=== PATIENT | male | born 1960 | race Caucasian/White ===

== ENCOUNTER 2022-03-15 12:25 | Observation (INO) ==
--- NOTE | 2022-03-15 13:26 | DR.GENAD ---
HPI Time Seen Time Seen by Provider: 03/15/22 13:24 PCP Primary Care Physician: LILIAN SANCHEZ Complaint/Symptoms Chief Complaint Doctors Comments: PATIENT WAS TOLD BY HIS PSP TO GO TO ER FOR LOW MAGNESIUM AND SAMIA CREATENINE LEVEL . WAS TOLD THAT HE NEEDED MG REPLACED AND FLUIDS. Chief Complaint:: PT REPORTS THAT HE WAS SENT OVER HER FROM HIS MD OFFICE DUE TO HIS MAGNESIUM BEING LOW AND HIS CREATINE BEING HIGH , AND HE WAS TOLD TO THAT HE NEEDED FLUIDS ,BR COVID-19 Coronavirus risk:travel/contact w/high risk person: No Has patient experienced Coronavirus symptoms: No Source History Provided: Patient Mode of Arrival Mode of Arrival: Ambulatory Timing Onset of Chief Complaint: 03/15/22 PMH PMH Past Medical History: Yes Past Medical History Comment: HX OF RENAL CELL CANINOMA Past Surgical History: Yes Past Surgical History Comment: RENAL ABLASION,,BR Family History History of Family Medical Conditions: Yes Family Medical History: Cancer Social History Does patient currently use any type of tobacco product: No Have you used tobacco products in the last 12 months: No Type of Tobacco Use: None Does any household member use tobacco: No Alcohol Use: Rarely Do you use any recreational Drugs:: No Lives With: Family Lives Where: Home Travel Risk Coronavirus risk:travel/contact w/high risk person: No Has patient experienced Coronavirus symptoms: No Infectious screening In the last 2 months have you had wt loss of >10#?: NO Have you had fever, night sweats or hemotysis?: No Have you traveled outside the country in the last 6 months?: No Isolation: Standard ROS Review of Systems Constitutional: No Symptoms Reported Eyes: No Symptoms Reported ENTM: No Symptoms Reported Respiratoy: No Symptoms Reported Cardiovascular: No Symptoms Reported Gastrointestinal/Abdominal: No Symptoms Reported Genitourinary: No Symptoms Reported Neurological: No Symptoms Reported Musculoskeletal: No Symptoms Reported Integumentary: No Symptoms Reported Hematologic/Lymphatic: No Symptoms Reported Endocrine: No Symptoms Reported Psychiatric: No Symptoms Reported PE Vital Signs Vitals: Temperature 97.6 F Pulse Rate 95 Respiratory Rate 22 Blood Pressure [Left Arm] 137/81 Blood Pressure 140/70 O2 Sat by Pulse Oximetry 98 General Limitations: No Limitations General Appearance: Alert and In No Apparent Distress Head Head Exam: Normal Inspection, Atraumatic and Normocephalic Eyes Eye exam: Normal Appearance, PERRL and EOMI ENT ENT Exam: Normal Exam, Normal Oropharynx and Normal External Ear Exam External Ear Exam: Normal External Inspection Nose Exam: Normal Nose Exam Mouth Exam: Normal Inspection Throat Exam: Normal Inspection Neck Neck Exam: Normal Inspection, Full ROM and Trachea Midline Chest Chest Inspection: Normal Inspection and Symmetric Chest Wall Rise Respiratory Respiratory Exam: Normal Lung Sounds Bilat Cardiovascular Cardiovascular Exam: Regular Rate and Normal Rhythm Abdominal Exam Abdominal Exam: Normal Inspection, Normal Bowel Sounds and Soft Extremities Extremities Exam: Normal Inspection and Full ROM Back Back Exam: Normal Inspection and Full ROM Neurologic Neurological Exam: Alert, Oriented X3 and CN II-XII Intact Psychiatric Psychiatric Exam: Normal Affect and Normal Mood Skin Skin Exam: Warm, Dry and Intact MDM Differential Diagnosis Differential Diagnosis: HYPOMAGNESEMIA,RENAL INSUFFICIENCY,DEHYDRATION COURSE Treatment Treatment: PATIENT REMAINED STABLE DURING ER EVALUATION. HIS MAGNESIUM LEVEL HERE WAS 0.5. CONSULTED WITH PHARMACIST AND HE RECOMMENDED 4 K RIDERE OF 1G EACH OF MAG SULFATE EACH GIVEN OVER 4 HOURS AND THEN MAG OXIDE 400MG BID. WILL ABMIT PATIENT TO GET THE MG OXIDE AND FLUIDS DUE TO ELEVATED CREATININE MAYBE 2ND TO DEHYDRATION. THE PATIENT ALSO GOT 1 LITER NACL IN ER BOLUS. SPOKE TO DR WALDROP AT 355 PM. WILL ACCEPT PATIENT FOR ADMISSION. UTILIZTION REVIEW STATED PATIENT CAN BE PUT IN OBSERVATION.THE PATIENT WAS TOLD OF THE PLAN AND WAS AGREABLE TO THE OBSERVATION. ROR Labs Reviewed Laboratory Results Reviewed?: Yes Result Diagrams: 03/15/22 13:52 03/15/22 13:52 Laboratory: WBC 5.4 X10^3/uL (3.6-10.0) 03/15/22 13:52 RBC 3.68 X10^6/uL (4.7-6.0) L 03/15/22 13:52 Hgb 11.5 g/dL (13.5-18.0) L 03/15/22 13:52 Hct 33.3 % (42.0-54.0) L 03/15/22 13:52 MCV 90.5 fL (80.0-100.0) 03/15/22 13:52 MCH 31.3 pg (27.0-34.0) 03/15/22 13:52 MCHC 34.5 g/dL (33.0-35.0) 03/15/22 13:52 RDW 13.9 % (11.6-16.5) 03/15/22 13:52 Plt Count 137 X10^3/uL (150.0-450.0) L 03/15/22 13:52 MPV 8.8 fL (7.4-11.0) 03/15/22 13:52 Neut % (Auto) 72.4 % (42.0-75.0) 03/15/22 13:52 Lymph % (Auto) 15.3 % (21.0-51.0) L 03/15/22 13:52 [place] % (Auto) 10.4 % (0.0-13.0) 03/15/22 13:52 Eos % (Auto) 1.1 % (0.9-2.9) 03/15/22 13:52 Baso % (Auto) 0.8 % (0.2-1.0) 03/15/22 13:52 Neut # (Auto) 3.9 x10^3/uL (2.2-4.8) 03/15/22 13:52 Lymph # (Auto) 0.8 X10^3/uL (1.3-2.9) L 03/15/22 13:52 [place] # (Auto) 0.6 x10^3/uL (0.3-0.8) 03/15/22 13:52 Eos # (Auto) 0.1 x10^3/uL (0.0-0.2) 03/15/22 13:52 Baso # (Auto) 0.0 X10^3/uL (0.0-0.1) 03/15/22 13:52 Absolute Nucleated RBC 0.0 /100WBC 03/15/22 13:52 Sodium 139 mmol/L (136-145) 03/15/22 13:52 Corrected Sodium TNP 03/15/22 13:52 Potassium 4.1 mmol/L (3.5-5.1) 03/15/22 13:52 Chloride 103 mmol/L (98-107) 03/15/22 13:52 Carbon Dioxide 28.5 mmol/L (21-32) 03/15/22 13:52 BUN 33 mg/dL (7-18) H 03/15/22 13:52 Creatinine 2.04 mg/dL (0.70-1.30) H 03/15/22 13:52 Est GFR (MDRD) Af Amer 43 (>60) L 03/15/22 13:52 Est GFR (MDRD) Non-Af 35 (>60) L 03/15/22 13:52 Glucose 98 mg/dL (65-99) 03/15/22 13:52 Calcium 7.4 mg/dL (8.5-10.1) L 03/15/22 13:52 Corrected Calcium TNP 03/15/22 13:52 Magnesium 0.5 mg/dL (1.7-2.9) L 03/15/22 13:52 Total Bilirubin 0.60 mg/dL (0.2-1.0) 03/15/22 13:52 AST 15 Units/L (15-37) 03/15/22 13:52 ALT 13 Units/L (12-78) 03/15/22 13:52 Alkaline Phosphatase 58 Units/L (46-116) 03/15/22 13:52 Total Protein 7.6 g/dL (6.4-8.2) 03/15/22 13:52 Albumin 3.7 g/dL (3.4-5.0) 03/15/22 13:52 Globulin 3.9 g/dL (2.5-4.5) 03/15/22 13:52 Albumin/Globulin Ratio 0.9 Ratio (1.1-2.1) L 03/15/22 13:52 Opioid Opioid Risk Tool Age (Marcio box if 16-45): No History of Preadolescent Sexual Abuse: No Total: 0 Total Score Risk Category: Low Risk Copyright: Adam RAINEY predicting aberrant behaviors Discharge Plan Diagnosis Discharge Problem: Hypomagnesemia, Dehydration, Acute renal insufficiency Discharge Plan Patient Disposition: ADMITTED INPATIENT Condition: Stable Orders to Discharge Patient Discharge Orders: Transfer (Routine); Ordered 03/15/22 Ordered By: Chapito Smith
[2022-03-15 14:03] LABS: BASOPHILS % (AUTO) 0.8 % (0.2-1.0); EOSINOPHILS # (AUTO) 0.1 x10^3/uL (0.0-0.2); EOSINOPHILS % (AUTO) 1.1 % (0.9-2.9); HEMATOCRIT 33.3 % (42.0-54.0); HEMOGLOBIN 11.5 g/dL (13.5-18.0); LYMPHOCYTES # (AUTO) 0.8 X10^3/uL (1.3-2.9); LYMPHOCYTES % (AUTO) 15.3 % (21.0-51.0); MEAN CORPUSCULAR HEMOGLOBIN 31.3 pg (27.0-34.0); MEAN CORPUSCULAR HGB CONC 34.5 g/dL (33.0-35.0); MEAN CORPUSCULAR VOLUME 90.5 fL (80.0-100.0); MEAN PLATELET VOLUME 8.8 fL (7.4-11.0); MONOCYTES # (AUTO) 0.6 x10^3/uL (0.3-0.8); MONOCYTES % (AUTO) 10.4 % (0.0-13.0); NEUTROPHILS # (AUTO) 3.9 x10^3/uL (2.2-4.8); NEUTROPHILS % (AUTO) 72.4 % (42.0-75.0); RED BLOOD COUNT 3.68 X10^6/uL (4.7-6.0); RED CELL DISTRIBUTION WIDTH 13.9 % (11.6-16.5); WHITE BLOOD COUNT 5.4 X10^3/uL (3.6-10.0)
[2022-03-15 14:10] LABS: ALANINE AMINOTRANSFERASE 13 Units/L (12-78); ALBUMIN 3.7 g/dL (3.4-5.0); ALKALINE PHOSPHATASE 58 Units/L (46-116); ASPARTATE AMINO TRANSFERASE 15 Units/L (15-37); BLOOD UREA NITROGEN 33 mg/dL (7-18); CALCIUM 7.4 mg/dL (8.5-10.1); CARBON DIOXIDE 28.5 mmol/L (21-32); CHLORIDE 103 mmol/L (98-107); CREATININE 2.04 mg/dL (0.70-1.30); MAGNESIUM 0.5 mg/dL (1.7-2.9); SODIUM 139 mmol/L (136-145); TOTAL PROTEIN 7.6 g/dL (6.4-8.2); eGFR NON BLACK RACES 35 (>60)
[2022-03-15] MEDS ORDERED: NS 1,000 ML IV 1,000 ML IV ONE (15:02)
[2022-03-15] MEDS ORDERED: NS 1,000 ML IV 1,000 ML ONE (15:09)
[2022-03-15] MEDS ORDERED: MAGNESIUM SULFATE 1 GRAM/100 mL PREMIX 1 G/100 ML BAG IV ONE (15:24)
[2022-03-15] MEDS ORDERED: MAG-OX TAB PO ONE (15:33)
[2022-03-15] MEDS: MAGNESIUM SULFATE 1 GRAM/100 mL PREMIX 1 G/100 ML BAG IV SCH ×4 (15:33→20:00)
[2022-03-15] MEDS ORDERED: MAGNESIUM SULFATE 1 GRAM/100 mL PREMIX 1 G/100 ML BAG IV SCH (16:00)
[2022-03-15] MEDS ORDERED: ZOFRAN TAB 4 MG PO PRN (16:48)
[2022-03-15] MEDS ORDERED: VITAMIN D (1.25MG) PO SCH (16:48)
[2022-03-15] MEDS ORDERED: TRICOR TAB 145 MG PO SCH (17:00)
[2022-03-15] MEDS: NS 1,000 ML IV 1,000 ML IV SCH ×2 (17:16→22:18)
[2022-03-15] MEDS ORDERED: ZOFRAN INJ 4 MG VIAL IVP PRN (19:38)
[2022-03-15] MEDS: PriLOSEC PO SCH (20:20)
[2022-03-15] MEDS: FLOMAX PO SCH (20:20)
[2022-03-15] MEDS: TYLENOL 325 MG TAB PO PRN (20:20)
[2022-03-15] MEDS: LIPITOR TAB 20 MG PO SCH (20:20)
[2022-03-15] MEDS: XANAX PO PRN (20:20)
[2022-03-15] MEDS ORDERED: STERILE WATER IRRIGATION IR ONE (21:16)
[2022-03-16] MEDS: TYLENOL 325 MG TAB PO PRN (05:45)
[2022-03-16 07:17] LABS: BASOPHILS % (AUTO) 0.4 % (0.2-1.0); EOSINOPHILS # (AUTO) 0.1 x10^3/uL (0.0-0.2); EOSINOPHILS % (AUTO) 1.4 % (0.9-2.9); HEMATOCRIT 31.5 % (42.0-54.0); HEMOGLOBIN 10.9 g/dL (13.5-18.0); LYMPHOCYTES # (AUTO) 0.6 X10^3/uL (1.3-2.9); LYMPHOCYTES % (AUTO) 11.3 % (21.0-51.0); MEAN CORPUSCULAR HEMOGLOBIN 31.3 pg (27.0-34.0); MEAN CORPUSCULAR HGB CONC 34.6 g/dL (33.0-35.0); MEAN CORPUSCULAR VOLUME 90.6 fL (80.0-100.0); MEAN PLATELET VOLUME 9.2 fL (7.4-11.0); MONOCYTES # (AUTO) 0.5 x10^3/uL (0.3-0.8); MONOCYTES % (AUTO) 9.5 % (0.0-13.0); NEUTROPHILS # (AUTO) 4.4 x10^3/uL (2.2-4.8); NEUTROPHILS % (AUTO) 77.4 % (42.0-75.0); RED BLOOD COUNT 3.48 X10^6/uL (4.7-6.0); RED CELL DISTRIBUTION WIDTH 13.8 % (11.6-16.5); WHITE BLOOD COUNT 5.7 X10^3/uL (3.6-10.0)
[2022-03-16 07:26] LABS: ALANINE AMINOTRANSFERASE 11 Units/L (12-78); ALBUMIN 3.1 g/dL (3.4-5.0); ALKALINE PHOSPHATASE 47 Units/L (46-116); ASPARTATE AMINO TRANSFERASE 12 Units/L (15-37); BLOOD UREA NITROGEN 28 mg/dL (7-18); CALCIUM 7.2 mg/dL (8.5-10.1); CARBON DIOXIDE 26.5 mmol/L (21-32); CHLORIDE 106 mmol/L (98-107); COR CA(FOR HYPOALB) 7.9 mg/dL (8.5-10.1); CREATININE 1.86 mg/dL (0.70-1.30); SODIUM 141 mmol/L (136-145); TOTAL PROTEIN 6.5 g/dL (6.4-8.2); eGFR NON BLACK RACES 39 (>60)
[2022-03-16] MEDS ORDERED: ZESTRIL TAB 20 MG ONE (08:13)
[2022-03-16] MEDS: NS 1,000 ML IV 1,000 ML IV SCH ×3 (08:30→20:46)
[2022-03-16] MEDS: MOBIC TAB 15 MG PO SCH (08:33)
[2022-03-16] MEDS: ZOLOFT PO SCH (08:33)
[2022-03-16] MEDS: FERROUS GLUCONATE PO SCH (08:33)
[2022-03-16] MEDS: ZYLOPRIM PO SCH (08:33)
[2022-03-16] MEDS: TRICOR TAB 48 MG PO SCH (08:33)
[2022-03-16] MEDS: COLACE CAP 100 MG PO SCH (08:34)
[2022-03-16] MEDS: ZESTRIL TAB 20 MG PO SCH (08:34)
[2022-03-16] MEDS: VITAMIN E 1000 UNIT PO SCH (08:36)
[2022-03-16] MEDS ORDERED: K-RIDER 10 MEQ/NS 100 ML 10 MEQ/100 ML BAG IV PRN (08:39)
[2022-03-16] MEDS ORDERED: K-DUR TAB 20 MEQ PO PRN (08:39)
[2022-03-16] MEDS ORDERED: KLOR-CON PO PRN (08:39)
[2022-03-16] MEDS ORDERED: POTASSIUM CHL 40 MEQ/NS 0.45% 500 ML IV PRN (08:39)
[2022-03-16] MEDS ORDERED: MICRO K EXTEN CAP 10 MEQ PO PRN (08:39)
[2022-03-16] MEDS: XANAX PO PRN ×2 (08:39→20:05)
[2022-03-16] MEDS ORDERED: POTASSIUM CHLORIDE LIQ 20 MEQ UDC PO PRN (08:39)
[2022-03-16] MEDS ORDERED: POTASSIUM CHL 60 MEQ/NS 0.45% 500 ML IV PRN (08:39)
[2022-03-16] MEDS ORDERED: PATIENT'S HOME MEDICATION (Ferrous Sulfate 325 mg (65 mg iron) Tablet) PO SCH (09:00)
[2022-03-16] MEDS: MAGNESIUM SULFATE 1 GRAM/100 mL PREMIX 1 G/100 ML BAG IV PRN ×4 (10:30→16:08)
--- NOTE | 2022-03-16 13:41 | DR.H&P ---
H&P - History & Physical for Day of: H&P Date: 03/15/22 - Chief Complaint Chief Complaint: LOW MAGNESIUM, WEAKNESS, ABDOMINAL PAIN - History of Present Illness History of Present Illness: PT IS 61 WM, ER ADMISSION AFTER PRESENTING WITH CO REPORTED LOW MAGNESIUM LEVELS FROM PCP OFFICE OBTAINED ON FRIDAY. PT REPORTS HE HAD RIGHT RENAL CELL CARCINOMA "ABLATION" AT [facility] ABOUT 3 WEEKS AGO. PT REPORT HE HAS CONTINUED TO FEEL WEAK AND HAS HAD TO TAKE MAGNESIUM REPLACEMENT. 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 - Past Medical History Past Medical History: Anxiety, Arthritis, GERD, Hypertension, Kidney Stones, Renal Disease - Past Surgical History Surgical History: Lithotripsy, Other Additional Surgical History: RIGHT RENAL CELL CARCINOMA ABLATION THERAPY - Family History Family Medical History: Cancer - Social History Does patient currently use any type of tobacco product: No Have you used tobacco products in the last 12 months: No Type of Tobacco Use: None Does any household member use tobacco: No Alcohol Use: DAILY Drug Use: None - Medications Home Medications: naproxen Allergy (Unknown, Verified 03/15/22 15:07) CONTINUE taking the following medications allopurinol 100 mg tablet 1 tab PO QDAY 03/15/22 [History] alprazolam 1 mg tablet 1 tab PO BID PRN 03/15/22 [History] atorvastatin 20 mg tablet 1 tab PO HS 03/15/22 [History] docusate sodium 100 mg capsule (Colace) 100 mg PO DAILY 03/15/22 [History] ergocalciferol (vitamin D2) 1,250 mcg (50,000 unit) capsule (Drisdol) 5,000 unit PO WEEKLY 03/15/22 [History] fenofibrate nanocrystallized 145 mg tablet 1 tab PO QDAY 03/15/22 [History] ferrous sulfate 325 mg (65 mg iron) tablet 325 mg PO DAILY 03/15/22 [History] lisinopril 20 mg tablet 1 tab PO QDAY 03/15/22 [History] meloxicam 15 mg tablet 1 tab PO QDAY 03/15/22 [History] omeprazole 20 mg capsule,delayed release 1 cap PO HS 03/15/22 [History] ondansetron 4 mg disintegrating tablet 4 tab PO PRN PRN Nausea 03/15/22 [History] sertraline 50 mg tablet 1 tab PO QDAY 03/15/22 [History] tamsulosin 0.4 mg capsule 0.4 mg PO HS 03/15/22 [History] vitamin E 1,000 unit tablet 1 tab PO DAILY 03/15/22 [History] - Review of Systems Constitutional: Weakness, Malaise Eyes: No Symptoms Reported ENT: No Symptoms Reported Respiratory: No Symptoms Reported Cardiovascular: No Symptoms Reported Genitourinary: No Symptoms Reported Musculoskeletal: No Symptoms Reported Skin: No Symptoms Reported Neurological: Weakness - Physical Exam Vital Signs: Temperature 98.2 F Pulse Rate [Left Radial] 66 Pulse Rate 74 Respiratory Rate 18 Blood Pressure [Right Arm] 135/71 Blood Pressure [Left Arm] 149/77 Blood Pressure 140/70 O2 Sat by Pulse Oximetry 98 Oriented: Normal Eyes: Normal Ear: Normal Nose: Normal Throat: Normal Respiratory: RLL Diminished, LLL Diminished Cardiovascular: Normal. negative: Edema : Normal Auscultation: Bowel Sounds: Normal Palpation: Normal Tenderness: RLQ, LLQ Skin: Decreased Turgur Musculoskeletal: Back:Thoracic, Back:Lumbar Psychiatric: Normal Mood Description: Calm Speech Pattern: Clear, Appropriate - Assessment/Plan (1) Hypomagnesemia Status: Acute Plan: ADMIT, GENTLE IV HYDRATION, ELECTROLYTE REPLACEMENT. VERIFY HOME MEDICATION, CARDIAC MONITORING. BP CONTROL, I&OS (2) Acute renal insufficiency Status: Acute (3) Personal history of renal cell carcinoma Status: Acute (4) Hypertension Status: Acute (5) Dehydration Status: Acute - Allergies Allergies/Adverse Reactions: Allergies Allergy/AdvReac Type Severity Reaction Status Date / Time naproxen Allergy Unknown Verified 03/15/22 15:07
[2022-03-16 18:24] VITALS: BMI 36.1
[2022-03-16] MEDS: LIPITOR TAB 20 MG PO SCH (20:05)
[2022-03-16] MEDS: PriLOSEC PO SCH (20:05)
[2022-03-16] MEDS: FLOMAX PO SCH (20:05)
--- NOTE | 2022-03-17 02:25 | RAD ---
PROCEDURE: Acute Abdomen Series .HISTORY: abdominal pains, constipation .TECHNIQUE: AP supine and upright abdomen with AP chest x-ray views .COMPARISON: 02/03/2021 chest x-ray.TECHNICAL QUALITY: Satisfactory .FINDINGS:Chest x-ray shows clear lungs and normal size heart.No pneumoperitoneum.Scattered gas in large and small bowel without distention. No obstruction or ileus.No organomegaly.No abnormal calcifications.No bony abnormality.IMPRESSION:1. Nonspecific bowel gas pattern.2. No active cardiopulmonary disease.Electronically signed by: Raj Pink (Mar 17, 2022 02:23:27)
[2022-03-17 06:34] LABS: BASOPHILS % (AUTO) 0.3 % (0.2-1.0); EOSINOPHILS # (AUTO) 0.1 x10^3/uL (0.0-0.2); EOSINOPHILS % (AUTO) 1.4 % (0.9-2.9); HEMATOCRIT 30.8 % (42.0-54.0); HEMOGLOBIN 10.7 g/dL (13.5-18.0); LYMPHOCYTES # (AUTO) 0.8 X10^3/uL (1.3-2.9); LYMPHOCYTES % (AUTO) 13.7 % (21.0-51.0); MEAN CORPUSCULAR HEMOGLOBIN 31.3 pg (27.0-34.0); MEAN CORPUSCULAR HGB CONC 34.7 g/dL (33.0-35.0); MEAN CORPUSCULAR VOLUME 90.2 fL (80.0-100.0); MEAN PLATELET VOLUME 9.6 fL (7.4-11.0); MONOCYTES # (AUTO) 0.6 x10^3/uL (0.3-0.8); MONOCYTES % (AUTO) 10.2 % (0.0-13.0); NEUTROPHILS # (AUTO) 4.1 x10^3/uL (2.2-4.8); NEUTROPHILS % (AUTO) 74.4 % (42.0-75.0); RED BLOOD COUNT 3.41 X10^6/uL (4.7-6.0); RED CELL DISTRIBUTION WIDTH 14.3 % (11.6-16.5); WHITE BLOOD COUNT 5.6 X10^3/uL (3.6-10.0)
[2022-03-17 06:56] LABS: ALBUMIN 3.1 g/dL (3.4-5.0); CALCIUM 7.4 mg/dL (8.5-10.1); CARBON DIOXIDE 23.8 mmol/L (21-32); COR CA(FOR HYPOALB) 8.1 mg/dL (8.5-10.1); CREATININE 1.53 mg/dL (0.70-1.30); MAGNESIUM 1.7 mg/dL (1.7-2.9); TOTAL PROTEIN 6.6 g/dL (6.4-8.2)
[2022-03-17] MEDS: MAGNESIUM SULFATE 1 GRAM/100 mL PREMIX 1 G/100 ML BAG IV PRN ×2 (07:27→08:53)
[2022-03-17] MEDS ORDERED: ZESTRIL TAB 20 MG ONE (08:00)
[2022-03-17] MEDS: NS 1,000 ML IV 1,000 ML IV SCH (08:52)
[2022-03-17] MEDS: XANAX PO PRN (08:57)
[2022-03-17] MEDS: MOBIC TAB 15 MG PO SCH (08:57)
[2022-03-17] MEDS: TRICOR TAB 48 MG PO SCH (08:57)
[2022-03-17] MEDS: ZOLOFT PO SCH (08:57)
[2022-03-17] MEDS: FERROUS GLUCONATE PO SCH (08:57)
[2022-03-17] MEDS: ZESTRIL TAB 20 MG PO SCH (08:58)
[2022-03-17] MEDS: COLACE CAP 100 MG PO SCH (08:58)
[2022-03-17] MEDS: ZYLOPRIM PO SCH (08:58)
[2022-03-17] MEDS: VITAMIN E 1000 UNIT PO SCH (08:58)
[2022-03-17 16:04] LABS: CRYPTOSPORIDIUM PARVUM ANTIGEN NEGATIVE (NEGATIVE); GIARDIA LAMBLIA ANTIGEN NEGATIVE (NEGATIVE)
[2022-03-17 16:29] VITALS: BP 146/75
[2022-03-17 16:43] LABS: ALBUMIN 3.2 g/dL (3.4-5.0); CALCIUM 7.6 mg/dL (8.5-10.1); CARBON DIOXIDE 25.3 mmol/L (21-32); COR CA(FOR HYPOALB) 8.2 mg/dL (8.5-10.1); CREATININE 1.52 mg/dL (0.70-1.30); TOTAL PROTEIN 6.8 g/dL (6.4-8.2)
== END 2022-03-17 17:40 | disposition home or self-care (01) ==
LOC: ER 12:25 → MED/SURG 12:25
PROVIDERS: ADMIT Internal Medicine; ATTEND Internal Medicine
DX: Z85.528 Personal history of other malignant neoplasm of kidney; E83.42 Hypomagnesemia; R53.1 Weakness; I10 Essential (primary) hypertension; E87.0 Hyperosmolality and hypernatremia; N28.9 Disorder of kidney and ureter, unspecified; R10.84 Generalized abdominal pain; Z20.822 Contact with and (suspected) exposure to COVID-19